=== PATIENT | female | born 1950 | race Caucasian/White ===

== ENCOUNTER 2018-03-01 10:19 | Inpatient (IN) | payer BC, MEDICARE ==
[~2018-03-01] VITALS: Ht 170.2 cm; Wt 81.7 kg
[2018-03-01] MEDS ORDERED: CEFTRIAXONE SOD 1 GM VIAL IM ONE (10:45)
[2018-03-01] MEDS ORDERED: SODIUM CHLORIDE 0.9% 1000ML 1,000 ML IV STA (10:45)
[2018-03-01 11:19] LABS: BASOPHILS # (AUTO) 0.2 (0.0-0.1); BASOPHILS % 0.8 % (0.0-1.0); EOSINOPHILS % 0.1 % (0.0-6.0); HEMATOCRIT 34.2 % (34.2-44.1); HEMOGLOBIN 12.6 g/dL (12.0-16.0); LYMPHOCYTES # (AUTO) 0.4 (1.0-3.2); LYMPHOCYTES % 1.9 % (18.0-39.1); MEAN CORPUSCULAR HEMOGLOBIN 37.1 pg (28-32); MEAN CORPUSCULAR HGB CONC 36.8 g/dL (31-35); MEAN CORPUSCULAR VOLUME 100.6 fL (81-99); MONOCYTES # (AUTO) 1.3 (0.2-0.8); MONOCYTES % 6.4 % (4.4-11.3); NEUTROPHILS # (AUTO) 17.8 (2.1-6.9); NEUTROPHILS % 90.2 % (38.7-80.0); PLATELET COUNT 91 x10e3/uL (140-360); RED CELL DISTRIBUTION WIDTH 14.9 % (11.7-14.4)
[2018-03-01 11:40] LABS: ALBUMIN 2.8 g/dL (3.5-5.0); ALBUMIN/GLOBULIN RATIO 0.8 (0.8-2.0); ANION GAP 19.9 mmol/L (8-16); CALCIUM 8.5 mg/dL (8.4-10.2); CREATININE, SERUM 1.29 mg/dL (0.57-1.11); MAGNESIUM 1.3 MG/DL (1.3-2.1); POTASSIUM 3.9 mmol/L (3.5-5.1)
[2018-03-01 11:47] LABS: CREATINE KINASE MB 0.9 ng/mL (0-5.0)
--- NOTE | 2018-03-01 11:55 | Diagnostic Imaging Report ---
EXAMINATION: CHEST SINGLE (PORTABLE) 03/01/2018 10:45 AM COMPARISON: None INDICATION: High heartbeat, temperature, kidney problems. DISCUSSION: LINES: None. LUNGS: No pneumonia or pulmonary edema. PLEURA: No pleural effusion or pneumothorax. HEART AND MEDIASTINUM: Mild cardiomegaly. Atherosclerosis and mild tortuosity of the thoracic aorta. There is mild prominence of the pulmonary arteries. BONES AND SOFT TISSUES: No acute osseous lesion. Multilevel degenerative changes of the thoracic spine. IMPRESSION: Mild cardiomegaly. No evidence of infection or edema. Donny Gay MD Signed by: Dr. Donny Gay M.D. on 03/01/2018 11:52 AM
[2018-03-01] MEDS ORDERED: DILTIAZEM HCL 5 MG/ML 5 ML VIAL IV NR (12:00)
[2018-03-01 12:20] LABS: CLARITY,URINE SL CLOUDY (CLEAR); COLOR,URINE YELLOW (YELLOW)
[2018-03-01 12:21] LABS: LEUKOCYTE ESTERASE ,URINE TRACE (NEGATIVE); NITRITE,URINE NEGATIVE (NEGATIVE)
[2018-03-01 12:22] LABS: KETONES,URINE NEGATIVE (NEGATIVE); PROTEIN,URINE DIPSTICK 3+ (NEGATIVE); URINE UROBILINOGEN 1 mg/dL (0.2 - 1)
[2018-03-01 12:23] LABS: BILIRUBIN,URINE 1+ (NEGATIVE)
[2018-03-01 12:29] LABS: BAND NEUTROPHILS % (MANUAL) 3 %; LYMPHOCYTES % (MANUAL) 1 % (19-48); MONOCYTES % (MANUAL) 7 % (3.4-9.0); NEUTROPHILS % (MANUAL) 89 % (40-74)
[2018-03-01 12:30] LABS: PLATELET MORPHOLOGY COMMENT NORMAL
[2018-03-01 12:31] LABS: PLATELET ESTIMATE MODERATELY DECREASED; RBC MORPHOLOGY COMMENT NORMAL
[2018-03-01 12:38] LABS: BACTERIA,URINE MANY /HPF; EPITHELIAL CELLS,URINE MANY /LPF; RBC,URINE >50 /HPF (0-5); WBC,URINE (MAN) >50 /HPF (0-5)
--- NOTE | 2018-03-01 13:30 | Diagnostic Imaging Report ---
EXAM: CT Abdomen and Pelvis WITH contrast INDICATION: Right flank pain COMPARISON: None. TECHNIQUE: Abdomen and pelvis were scanned utilizing a multidetector helical scanner from the lung base to the pubic symphysis after administration of IV contrast. Coronal and sagittal reformations were obtained. Routine protocol is performed. IV CONTRAST: None. ORAL CONTRAST: None RADIATION DOSE: Total DLP: 609.48 mGy*cm Estimated effective dose: (DLP x 0.015 x size factor) mSv COMPLICATIONS: None FINDINGS: LINES and TUBES: None. LOWER THORAX: Unremarkable HEPATOBILIARY: Cirrhotic liver morphology. Scattered calcified granulomas in the liver. No biliary ductal dilation. GALLBLADDER: Numerous small stones are present in the gallbladder. No wall thickening. SPLEEN: No splenomegaly. PANCREAS: No focal masses or ductal dilatation. ADRENALS: Mild diffuse thickening of both adrenal glands without definite discrete nodule. This may be due to hyperplasia. KIDNEYS/URETERS: No hydronephrosis. An 8 mm hyperdense lesion in the interpolar region of the left kidney (series 3, image 53) most likely represents a hemorrhagic cyst. There is enlargement and perirenal stranding around the right kidney. No renal or ureteral stones GI TRACT: No abnormal distention, wall thickening, or evidence of bowel obstruction. Numerous sigmoid diverticula without evidence of acute diverticulitis. There is a moderate amount of stool in the rectum. Appendix is normal. PELVIC ORGANS/BLADDER: Unremarkable. LYMPH NODES: No lymphadenopathy. VESSELS: There is severe atherosclerotic disease in the aorta and major arterial branches. PERITONEUM / RETROPERITONEUM: No free air or fluid. BONES: Multilevel degenerative changes of the thoracic and lumbar spine. Severe disc space narrowing at L5-S1. SOFT TISSUES: Unremarkable. IMPRESSION: 1. Findings consistent with right pyelonephritis. No renal or ureteral stones on either side. 2. Cirrhotic liver morphology. 3. Cholelithiasis. Donny Gay MD Signed by: Dr. Donny Gay M.D. on 03/01/2018 1:27 PM
[2018-03-01] MEDS: CEFTRIAXONE SOD 1 GM VIAL IV SCH (14:15)
[2018-03-01] MEDS: ACETAMINOPHEN 325 MG TAB PO PRN (15:43)
[2018-03-01 16:49] VITALS: BP 142/61
[2018-03-01 16:50] VITALS: BP 142/61
[2018-03-01] MEDS: NICOTINE 14 MG/EA PATCH TOP SCH (19:27)
[2018-03-01 20:21] LABS: CREATINE KINASE MB 0.7 ng/mL (0-5.0)
[2018-03-01] MEDS: ENOXAPARIN INJ 80 MG/0.8 ML SYR SC SCH (20:33)
[2018-03-01 21:19] VITALS: BP 115/55
[2018-03-02 00:17] VITALS: BP 135/58
[2018-03-02] MEDS: ACETAMINOPHEN 325 MG TAB PO PRN ×2 (00:19→11:16)
[2018-03-02] MEDS: CEFTRIAXONE SOD 1 GM VIAL IV SCH (02:20)
[2018-03-02 05:03] VITALS: BP 119/68
[2018-03-02 05:24] LABS: CREATINE KINASE MB 0.4 ng/mL (0-5.0)
[2018-03-02] MEDS: SODIUM CHLORIDE 0.9% 1000ML 1,000 ML IV SCH (07:30)
[2018-03-02] MEDS: CEFEPIME HCL 1 GM VIAL IV SCH ×2 (07:30→19:41)
[2018-03-02] MEDS ORDERED: VANCOMYCIN 1GM/NS 250 ML 250 ML IV ONE (07:30)
[2018-03-02 08:00] VITALS: BP 136/83
[2018-03-02 08:29] LABS: CHOLESTEROL 84 MD/DL (0-199); TRIGLYCERIDES 196 MG/DL (0-149)
[2018-03-02 08:32] LABS: HDL CHOLESTEROL < 5 MG/DL (40-60); LDL CHOLESTEROL 40 MG/DL (60-130)
[2018-03-02] MEDS: DILTIAZEM HCL 120 MG CAP CD PO SCH (09:00)
[2018-03-02] MEDS: NICOTINE 14 MG/EA PATCH TOP SCH (09:00)
[2018-03-02] MEDS: FAMOTIDINE 20 MG/2 ML VIAL IV SCH ×2 (09:00→16:44)
[2018-03-02] MEDS: ENOXAPARIN INJ 80 MG/0.8 ML SYR SC SCH ×2 (09:00→21:02)
[2018-03-02] MEDS ORDERED: DILTIAZEM HCL 120 MG CAP CD PO SCH (09:00)
--- NOTE | 2018-03-02 09:25 | History and Physical ---
PRIMARY CARE PHYSICIAN: Dr. Comer CHIEF COMPLAINT: Cough, fever and chills. HISTORY OF PRESENT ILLNESS: This is a 67-year-old woman with a history of diabetes mellitus and urinary tract infection as well as continued cigarette use, now developing a cough with clear phlegm as well as fever, chills and fatigue for the past 3 days. She came to the hospital here. Chest x-ray was negative, but imaging was suggestive of pyelonephritis. The patient was admitted for further evaluation and management. The patient was also found to be in atrial fibrillation with rapid ventricular response. PAST MEDICAL HISTORY: Hypertension, diabetes mellitus, urinary tract infection, cigarette use. PAST SURGICAL HISTORY: Tubal . ALLERGIES: PER ELECTRONIC MEDICAL RECORD. FAMILY/SOCIAL HISTORY: The patient is . She has 2 children. Drinks alcohol daily, about 2 glasses of wine or bourbon. She smokes 1 pack of cigarettes per day. MEDICATIONS: Per electronic medical record. REVIEW OF SYSTEMS: Denies any dizziness, chest pain, shortness of breath. Denies any headache, vision changes. Denies any diarrhea. PHYSICAL EXAMINATION VITAL SIGNS: Have been reviewed. GENERAL APPEARANCE: A tired-appearing woman resting in bed. HEENT: Anicteric. Pupils are responsive to light. No oral lesions. CARDIOVASCULAR: Normal S1 and S2. LUNGS: She has coarse breath sounds throughout with coughing with deep inspiration. ABDOMEN: Mildly tender on the right side. The right flank is tender. EXTREMITIES: No edema or calf tenderness. NEUROLOGIC: Alert, oriented times 3, moving all extremities. SKIN: Dry. PSYCHIATRIC: Flat affect. LABS: Reviewed. MEDICATIONS: Reviewed. ASSESSMENT: This is a 67-year-old woman. 1. Right-sided pyelonephritis. 2. Atrial fibrillation with rapid ventricular response. 3. Diabetes mellitus, type 2. 4. Hypertension. 5. Acute bronchitis. 6. Cirrhotic-appearing liver on CT scan imaging. 7. Cholelithiasis. 8. Thrombocytopenia. 9. Elevated beta natriuretic peptide. 10. Hyponatremia. 11. Acute kidney injury. 12. Urinary tract infection. 13. Sepsis with tachycardia and fever as high as 102.1 and blood pressure as low as 92/66. PLAN 1. Change IV ceftriaxone to IV cefepime. 2. Give 1 dose of vancomycin. 3. Resume IV fluids. 4. Obtain hemoglobin A1c and lipid panel. 5. Will give diabetic diet. 6. Will obtain TSH. 7. Use calcium channel abigail. Plan to use beta abigail when blood pressure improves. 8. Continue full-dose anticoagulation. 9. Add Pepcid. Job#: [id number]
[2018-03-02] MEDS ORDERED: DIPHENHYDRAMINE HCL INJ 50 MG/ML VIAL IV ONE (10:30)
[2018-03-02] MEDS ORDERED: DIPHENHYDRAMINE HCL INJ 50 MG/ML VIAL IV PRN (10:30)
[2018-03-02 12:00] VITALS: BP 113/59
[2018-03-02 14:58] LABS: BASOPHILS % 0.4 % (0.0-1.0); EOSINOPHILS % 0.4 % (0.0-6.0); HEMATOCRIT 30.6 % (34.2-44.1); LYMPHOCYTES # (AUTO) 0.6 (1.0-3.2); LYMPHOCYTES % 6.7 % (18.0-39.1); MEAN CORPUSCULAR HEMOGLOBIN 36.7 pg (28-32); MEAN CORPUSCULAR HGB CONC 35.9 g/dL (31-35); MONOCYTES # (AUTO) 0.8 (0.2-0.8); NEUTROPHILS % 82.3 % (38.7-80.0); PLATELET COUNT 55 x10e3/uL (140-360); RED CELL DISTRIBUTION WIDTH 15.8 % (11.7-14.4)
[2018-03-02 15:14] LABS: ANION GAP 18.1 mmol/L (8-16); CALCIUM 8.6 mg/dL (8.4-10.2); POTASSIUM 3.1 mmol/L (3.5-5.1)
[2018-03-02 16:00] VITALS: BP 111/56
[2018-03-02 16:20] LABS: BAND NEUTROPHILS % (MANUAL) 1 %; LYMPHOCYTES % (MANUAL) 13 % (19-48); MONOCYTES % (MANUAL) 3 % (3.4-9.0); NEUTROPHILS % (MANUAL) 83 % (40-74); PLATELET ESTIMATE MODERATELY DECREASED; PLATELET MORPHOLOGY COMMENT NORMAL; RBC MORPHOLOGY COMMENT ABNORMAL
[2018-03-02] MEDS ORDERED: CLINDAMYCIN 300MG 50 ML IV SCH (18:00)
[2018-03-02 20:14] VITALS: BP 109/64
[2018-03-03 00:10] VITALS: BP_SYST 102; BP_SYST 129; BP_DIAS 51; BP_DIAS 69
[2018-03-03] MEDS: SODIUM CHLORIDE 0.9% 1000ML 1,000 ML IV SCH ×3 (02:53→23:30)
[2018-03-03 05:00] LABS: BASOPHILS % 0.2 % (0.0-1.0); EOSINOPHILS # (AUTO) 0.1 (0.0-0.4); EOSINOPHILS % 1.4 % (0.0-6.0); HEMATOCRIT 29.1 % (34.2-44.1); HEMOGLOBIN 10.5 g/dL (12.0-16.0); LYMPHOCYTES # (AUTO) 0.8 (1.0-3.2); LYMPHOCYTES % 9.3 % (18.0-39.1); MEAN CORPUSCULAR HEMOGLOBIN 36.6 pg (28-32); MEAN CORPUSCULAR HGB CONC 36.1 g/dL (31-35); MEAN CORPUSCULAR VOLUME 101.4 fL (81-99); MONOCYTES # (AUTO) 1.3 (0.2-0.8); MONOCYTES % 14.8 % (4.4-11.3); NEUTROPHILS # (AUTO) 6.4 (2.1-6.9); NEUTROPHILS % 71.9 % (38.7-80.0); PLATELET COUNT 52 x10e3/uL (140-360); RED BLOOD COUNT 2.87 x10e6/uL (3.6-5.1); RED CELL DISTRIBUTION WIDTH 15.6 % (11.7-14.4)
[2018-03-03 05:13] VITALS: BP 103/66
[2018-03-03 05:18] LABS: ANION GAP 13.9 mmol/L (8-16); BLOOD UREA NITROGEN 36 mg/dL (7-26); BUN/CREATININE RATIO 44 (6-25); CALCIUM 8.5 mg/dL (8.4-10.2); CARBON DIOXIDE 25 mmol/L (22-29); CHLORIDE 96 mmol/L (98-107); CREATININE, SERUM 0.82 mg/dL (0.57-1.11); EST GLOMERULAR FILTRATION RATE > 60 ML/MIN (60-); GLUCOSE 110 mg/dL (74-118); SODIUM 132 mmol/L (136-145)
[2018-03-03 05:23] LABS: POTASSIUM 2.9 mmol/L (3.5-5.1)
[2018-03-03] MEDS ORDERED: POTASSIUM CHLORIDE 20 MEQ TAB CR PO STA (05:27)
[2018-03-03] MEDS ORDERED: POTASSIUM CHLORIDE 20MEQ/100ML 200 ML IV ONE (05:30)
[2018-03-03] MEDS: ACETAMINOPHEN 325 MG TAB PO PRN ×4 (06:15→21:45)
[2018-03-03] MEDS: CEFEPIME HCL 1 GM VIAL IV SCH ×2 (09:21→21:45)
[2018-03-03] MEDS: FAMOTIDINE 20 MG/2 ML VIAL IV SCH ×2 (09:21→17:00)
[2018-03-03] MEDS: DILTIAZEM HCL 120 MG CAP CD PO SCH (09:22)
[2018-03-03] MEDS: NICOTINE 14 MG/EA PATCH TOP SCH (09:22)
[2018-03-03] MEDS: ENOXAPARIN INJ 80 MG/0.8 ML SYR SC SCH ×2 (09:22→21:45)
[2018-03-03 09:33] VITALS: BP 142/81
[2018-03-03 09:40] VITALS: BP 142/81
[2018-03-03 17:40] VITALS: BP 134/86
--- NOTE | 2018-03-03 19:29 | Consultation ---
DATE OF CONSULTATION: March 03, 2018 CARDIOLOGY CONSULTATION REASON FOR CONSULTATION: Atrial fibrillation. HISTORY: This is a 67-year-old lady who came to this institution. She is known with diabetes mellitus and history of UTIs. Unfortunately, she is a heavy smoker for many, many years, and she drinks at least 2 drinks per day. She came to the hospital with fever and chills, temperature up to 102. Workup revealed right pyelonephritis. Another finding was liver cirrhosis and cholelithiasis on that CAT scan. On admission, she was in atrial fibrillation with fast ventricular response. She is not aware of having atrial fibrillation in the past. She is weak. Her acute illness with fever and chills started a couple of days prior to admission and progressively getting worse. Regarding her cardiac and pulmonary status, she is unaware of any atrial fibrillation in the past. There is no history of heart disease. As per family and per coworker, she does have shortness of breath on minimal activity. She attributed that to her lung disease and heavy smoking. She is in denial. She denied having any congestive heart failure-like symptoms. She does have cough with clear sputum of many years' duration, which is chronic. She does have easy fatigability. REVIEW OF SYSTEMS CARDIAC: As per above. PULMONARY: As per above. GI: No hematemesis. No melena. : Increased frequency of urination. Fever and chills. GENERAL: Fever, chills, failure to thrive. HEMATOLOGIC: Easy bruising but no bleeding. NEUROLOGIC: No localized deficit. No seizure activity. OTHER: Weakness. SOCIAL HISTORY: She lost her a month ago. She drinks a few drinks per day, and she smokes 1 pack per day. She is still working in [employer]. HOME MEDICATIONS: Include: 1. Metformin 500 mg twice a day. 2. Allopurinol 300 mg a day. 3. Losartan and hydrochlorothiazide 100 and 25 one tablet a day. ALLERGIES: NONE. CURRENT MEDICATIONS SINCE ADMISSION: Cefepime, Lovenox, diltiazem, Pepcid and nicotine patch. FAMILY HISTORY: Father of congestive heart failure at age 88. Mother is still alive at age 91. She is forgetful. One brother and 2 sisters, they are healthy, and 2 healthy children. PHYSICAL EXAMINATION VITALS: Height of 5 feet 8 inches, weight of 188 pounds. Blood pressure 100/60. Heart rate of 90, irregularly irregular, atrial fibrillation. Respiratory rate of 18. Temperature currently at 99. On admission, it was 102.1. GENERAL: Tired chronically and acutely ill patient. HEENT: Pupils are reactive. NECK: No elevation of jugular venous pulsation. CHEST: Decreased lung expansion and crackles. HEART: Irregularly irregular rate of atrial fibrillation. Normal first and second heart sounds. ABDOMEN: Soft. Bowel sounds are present. Liver edge is palpable. EXTREMITIES: Chronic skin changes. No edema. NEUROLOGIC: Awake, alert, oriented. No motor deficits. LABORATORY DATA: Sodium 139, potassium 2.9. BUN of 36, creatinine of 0.82. BNP of 529. Glucose of 110. Triglycerides of 196, total cholesterol of only 84, HDL of less than 5, LDL of 40. TSH of 1.4. White blood cell count on admission 19.7, today at 8.8. Hemoglobin 10.5. Hematocrit 29%. BUN decreasing and creatinine are at 38 and 0.82. EKG showing atrial fibrillation, bundle-branch block, nonspecific ST changes. IMPRESSION 1. Right pyelonephritis. 2. Atrial fibrillation. 3. Diabetes mellitus. 4. Hypertension. 5. Chronic lung disease. 6. Liver cirrhosis. 7. Leukocytosis. 8. Anemia. 9. Decreased platelet count, thrombocytopenia. 10. Cholelithiasis. 11. Acute tubular necrosis with recovery. 12. Currently the patient is relatively hypotensive off medication of blood pressure. PLAN: Continuation of current medical regimen of treating her UTI, anticoagulation, calcium channel abigail in view of her lung symptoms. Atrial fibrillation, elevated BNP and cardiac issues are discussed at length with the patient, her daughter and her son. Her daughter is a speech supervisor fur floor worker. We discussed all the options of treatment, choices of treatment, followup, etc. Informed about her other chronic health problems. Currently, she is on Cardizem, which we will continue. Will observe her heart rate. She is on Lovenox, which will continue. Anticoagulation will be a problem because of her low platelet count and liver disease. Probably the safest would be Coumadin or warfarin because of her comorbid conditions. An echocardiogram in view of elevation of BNP, atrial fibrillation, etc., to evaluate function. Future tests of atrial fibrillation and options on how to restore sinus rhythm, etc., can be addressed in the long run. All this was explained and discussed. Questions are answered. Job#: [id number]
[2018-03-03 20:10] VITALS: BP 134/86
[2018-03-04 04:47] LABS: BASOPHILS % 0.3 % (0.0-1.0); EOSINOPHILS # (AUTO) 0.1 (0.0-0.4); HEMATOCRIT 30.3 % (34.2-44.1); HEMOGLOBIN 10.6 g/dL (12.0-16.0); LYMPHOCYTES # (AUTO) 0.8 (1.0-3.2); LYMPHOCYTES % 6.2 % (18.0-39.1); MEAN CORPUSCULAR HEMOGLOBIN 36.2 pg (28-32); MEAN CORPUSCULAR VOLUME 103.4 fL (81-99); MONOCYTES # (AUTO) 1.5 (0.2-0.8); MONOCYTES % 11.4 % (4.4-11.3); NEUTROPHILS # (AUTO) 10.2 (2.1-6.9); NEUTROPHILS % 80.1 % (38.7-80.0); PLATELET COUNT 84 x10e3/uL (140-360); RED BLOOD COUNT 2.93 x10e6/uL (3.6-5.1); RED CELL DISTRIBUTION WIDTH 16.2 % (11.7-14.4)
[2018-03-04 05:07] LABS: INR 1.3; PROTHROMBIN TIME 15.2 seconds (11.9-14.5)
[2018-03-04 05:16] LABS: ALANINE AMINOTRANSFERASE 75 IU/L (0-55); ALBUMIN 2.1 g/dL (3.5-5.0); ALBUMIN/GLOBULIN RATIO 0.5 (0.8-2.0); ALKALINE PHOSPHATASE 230 IU/L (40-150); ANION GAP 14.7 mmol/L (8-16); BLOOD UREA NITROGEN 25 mg/dL (7-26); BUN/CREATININE RATIO 36 (6-25); CALCIUM 8.7 mg/dL (8.4-10.2); CARBON DIOXIDE 23 mmol/L (22-29); CHLORIDE 101 mmol/L (98-107); EST GLOMERULAR FILTRATION RATE > 60 ML/MIN (60-); GLUCOSE 102 mg/dL (74-118); POTASSIUM 3.7 mmol/L (3.5-5.1); SODIUM 135 mmol/L (136-145)
[2018-03-04] MEDS: CEFEPIME HCL 1 GM VIAL IV SCH ×2 (07:30→21:00)
[2018-03-04 07:40] VITALS: BP 140/76
[2018-03-04 08:00] VITALS: BP 140/76
[2018-03-04] MEDS: NICOTINE 14 MG/EA PATCH TOP SCH (09:00)
[2018-03-04] MEDS: ENOXAPARIN INJ 80 MG/0.8 ML SYR SC SCH ×2 (09:00→21:00)
[2018-03-04] MEDS: FAMOTIDINE 20 MG/2 ML VIAL IV SCH ×2 (09:00→17:00)
[2018-03-04 12:00] VITALS: BP 147/90
--- NOTE | 2018-03-04 12:01 | Diagnostic Imaging Report ---
EXAM: Right Upper Quadrant Ultrasound INDICATION: \S\cirrhotic? elevated LFTs; gallstones? \[id number] \S\1050 COMPARISON: CT abdomen pelvis without contrast 12/30/2017 TECHNIQUE: Transverse and longitudinal images of the right upper abdomen were obtained. FINDINGS: Liver: Size: 20.7 cm in the right midclavicular line, enlarged Appearance: Normal echogenicity, mildly nodular contour Mass: No focal masses Gallbladder: Stones/Sludge: Multiple echogenic shadowing calculi are noted in the dependent portion of the gallbladder lumen Wall: 0.3 cm Appearance: No wall thickening, pericholecystic fluid or hydrops. Sonographic Grajeda's Sign: Negative Bile Ducts: Intrahepatic Ducts: No dilatation Extrahepatic Ducts: Common bile duct measures 0.3 cm, no dilatation Pancreas: Visualized portions of the pancreatic neck and proximal body are normal. Kidneys: Length: Right 15.9 cm Echogenicity: Normal Collecting System: No hydronephrosis Stone: None Cyst/Mass: None Vessels: Aorta: Visualized portions are normal Inferior Vena Cava: Visualized portions are normal Main Portal Vein: 1.5 cm, mildly enlarged, with hepatopetal flow. Free Fluid: No ascites or pleural effusion IMPRESSION: 1. Moderate hepatomegaly with nodular contour consistent with cirrhosis. 2. Dilated main portal vein likely reflects portal hypertension. 3. Cholelithiasis, without sonographic evidence of cholecystitis. 4. Enlarged right kidney, without hydronephrosis or focal lesions. Signed by: Dr. Jeffrey Irving M.D. on 03/04/2018 11:33 AM
[2018-03-04] MEDS: DILTIAZEM HCL 120 MG CAP CD PO SCH (12:07)
[2018-03-04] MEDS: SODIUM CHLORIDE 0.9% 1000ML 1,000 ML IV SCH (12:15)
[2018-03-04 16:00] VITALS: BP 128/60
--- NOTE | 2018-03-04 16:15 | Consultation ---
DATE OF CONSULTATION: INFECTIOUS DISEASE CONSULTATION REASON FOR CONSULTATION: UTI, E. coli bacteremia. HISTORY OF PRESENT ILLNESS: This is a patient who is a very pleasant 67-year-old, history of atrial fibrillation, history of smoking, comes in with fever and chills. She does have diabetes mellitus and hypertension. She comes in with fever and chills. She has been sick for a week. The patient was found to have pyelonephritis with UTI and E. coli. Patient was admitted. Patient was consulted. She is feeling better. The patient does have underlying history of liver cirrhosis, history of COPD, atrial fibrillation. PAST MEDICAL HISTORY: As above. PAST SURGICAL HISTORY: Denies. ALLERGIES: NKA. SOCIAL HISTORY: Smokes 1 pack a day, drinks 2 to 3 beers a day. REVIEW OF SYSTEMS: HEENT: Negative. PULMONARY: Negative. CARDIAC: Negative at the present time. RESPIRATORY: She does have underlying at base also some shortness of breath. The patient was admitted, started on cefepime with improvement. PHYSICAL EXAMINATION: GENERAL: She is currently alert, oriented, does not seem to be in acute distress. VITAL SIGNS: Stable. Currently afebrile. HEENT: She does not appear icteric. NECK: Supple. CHEST: Clear. CARDIAC: No murmur. ABDOMEN: Soft. IMPRESSION: 1. Urinary tract infection, sepsis, Escherichia coli. Getting better. Can discharge home tomorrow with oral Keflex 500 p.o. t.i.d. Follow up as outpatient. 2. Hypertension. 3. Diabetes mellitus. 4. Chronic obstructive pulmonary disease. 5. Liver cirrhosis. Will follow. Job#: [id number] EV
[2018-03-04] MEDS: WARFARIN SOD 5 MG TAB PO SCH (17:00)
--- NOTE | 2018-03-04 19:40 | Progress Note ---
DATE: No dictation, length (00:16). Job#: [id number] GE
--- NOTE | 2018-03-04 19:52 | Progress Note ---
DATE: March 03, 2018 TIME OF SERVICE: 7 a.m. SUBJECTIVE: Overnight feeling a little better. REVIEW OF SYSTEMS: Denies any dizziness, chest pain, shortness of breath, fever or chills or sweats, no nausea, vomiting or diarrhea. OBJECTIVE VITAL SIGNS: Reviewed. GENERAL APPEARANCE: A tired-appearing woman resting in the bed. HEENT: Anicteric. CARDIOVASCULAR: Normal S1 and S2. LUNGS: Moderate breath sounds, ABDOMEN: Soft. Right flank mildly tender. EXTREMITIES: There is no edema or calf tenderness. NEUROLOGIC: Alert and oriented x3. Moving all extremities. SKIN: Dry. PSYCHIATRIC: Flat affect. LABS: Reviewed. MEDICATIONS: Reviewed. ASSESSMENT: A 67-year-old woman: 1. Right-sided pyelonephritis. 2. Atrial fibrillation with rapid ventricular response. 3. Diabetes mellitus type 2. 4. Hypertension. 5. Acute bronchitis. 6. Cirrhotic-appearing liver on CT scan imaging. 7. Cholelithiasis. 8. Thrombocytopenia. 9. Elevated beta natriuretic peptide. 10. Hyponatremia. 11. Acute kidney injury. 12. Urinary tract infection. 13. Sepsis with tachycardia and fever as high as 102.1. 14. Hypokalemia. PLAN 1. Replace potassium. 2. Continue IV antibiotics. 3. Follow up cultures. 4. Renal function improving. 5. Continue fluids. 6. Leukocytosis resolving. 7. Gram-negative urinary tract infection. 8. Discussed the case with the patient and family at bedside. Job#: [id number]
--- NOTE | 2018-03-04 20:06 | Progress Note ---
DATE: March 04, 2018 TIME: 7 a.m. SUBJECTIVE: Overnight, feeling better. REVIEW OF SYSTEMS: Denies any dizziness, chest pain, shortness of breath, fever, chills, sweats, nausea, vomiting, diarrhea. OBJECTIVE VITAL SIGNS: Reviewed. GENERAL: A tired appearing woman, resting in bed. HEENT: Anicteric. CARDIOVASCULAR: Normal S1, S2. LUNGS: Moderate breath sounds. ABDOMEN: Soft, nontender, nondistended. EXTREMITIES: No edema. SKIN: Dry. PSYCHIATRIC: Flat affect. NEUROLOGICAL: Alert and appropriate. LABS: Reviewed. MEDICATIONS: Reviewed. ASSESSMENT: A 67-year-old woman with, 1. Right-sided pyelonephritis. 2. Escherichia coli urinary tract infection. 3. Gram-negative stefani bacteremia. 4. Atrial fibrillation with rapid ventricular response. 5. Diabetes mellitus type 2. 6. Hypertension. 7. Acute bronchitis. 8. Cirrhotic-appearing liver on computed tomographic scan. 9. Cholelithiasis. 10. Thrombocytopenia. 11. Elevated B-type natriuretic peptide. 12. Hyponatremia. 13. Acute kidney injury. 14. Urinary tract infection. 15. Sepsis with tachycardia. 16. Thrombocytopenia likely secondary to cirrhosis of the liver. PLAN 1. Continue IV antibiotics. 2. Leukocytosis resolved. 3. Renal function improving. 4. I have discussed the case with daughter with bedside. 5. Obtain ultrasound of the liver to further evaluate. 6. Follow up cardiology recommendation. 7. Heart rate currently controlled. 8. The patient is on anticoagulation. The patient has thrombocytopenia. 9. I have explained everything to the daughter and the patient at bedside. Will follow up hepatitis panel and follow up liver ultrasound. Job#: [id number] [employer]
[2018-03-04 20:30] VITALS: BP 128/60
[2018-03-04 20:35] VITALS: BP 145/65
[2018-03-05] VITALS (8 sets, daily range): BP systolic 119–158; BP diastolic 72–94
[2018-03-05] MEDS: SODIUM CHLORIDE 0.9% 1000ML 1,000 ML IV SCH ×2 (02:10→15:30)
--- NOTE | 2018-03-05 07:36 | Progress Note ---
DATE: March 05, 2018 TIME: 7:15 a.m. OVERNIGHT: No events. REVIEW OF SYSTEMS: Denies any dizziness, chest pain or shortness of breath, fever, chills, nausea, vomiting, diarrhea. PHYSICAL EXAMINATION VITAL SIGNS: Reviewed. GENERAL: A tired-appearing woman resting in bed. HEENT: Anicteric. CARDIOVASCULAR: Normal S1 and S2. LUNGS: Moderate breath sounds. ABDOMEN: Soft, nontender and nondistended. EXTREMITIES: No edema or calf tenderness. NEUROLOGICAL: Alert and oriented times 3. Moving all extremities. SKIN: Dry. PSYCHIATRIC: Normal affect. LABS: Reviewed. MEDICATIONS: Reviewed. ASSESSMENT: This is a 67-year-old woman with: 1. Right-sided pyelonephritis. 2. Escherichia coli urinary tract infection. 3. Escherichia coli bacteremia. 4. Atrial fibrillation with rapid ventricular response. 5. Diabetes mellitus, type 2. 6. Hypertension. 7. Acute bronchitis. 8. Cirrhotic appearing liver. 9. Cholelithiasis. 10. Thrombocytopenia. 11. Elevated brain natriuretic peptide. 12. Hyponatremia. 13. Acute kidney injury. 14. Urinary tract infection. 15. Sepsis. 16. Thrombocytopenia likely secondary to cirrhosis. PLAN 1. Continue IV antibiotics for bacteremia with E. coli. The patient needs 14 days total of IV antibiotics for bacteremia treatment. Repeat blood cultures negative to date. 2. Renal function has been improving. 3. Continue anticoagulation with Coumadin with Lovenox bridging. Obtain INR now. 4. Hepatitis panel is still pending. I discussed this with the patient and daughter at bedside. 5. Echocardiogram is showing normal left ventricular ejection fraction of 50% to 55%. Trace mitral regurgitation and mild to moderate tricuspid regurgitation. 6. Discharge planning. Wait for INR to become therapeutic. Continue IV antibiotics in the meantime. This is day #5 of IV antibiotics. Job#: [id number] MARK
[2018-03-05 07:59] LABS: INR 1.27; PROTHROMBIN TIME 14.9 seconds (11.9-14.5)
[2018-03-05] MEDS: CEFEPIME HCL 1 GM VIAL IV SCH ×2 (08:27→20:19)
[2018-03-05] MEDS: FAMOTIDINE 20 MG/2 ML VIAL IV SCH ×2 (08:27→16:47)
[2018-03-05] MEDS: DILTIAZEM HCL 120 MG CAP CD PO SCH (08:28)
[2018-03-05] MEDS: ENOXAPARIN INJ 80 MG/0.8 ML SYR SC SCH ×2 (08:28→20:19)
[2018-03-05] MEDS: NICOTINE 14 MG/EA PATCH TOP SCH (08:28)
[2018-03-05] MEDS: WARFARIN SOD 5 MG TAB PO SCH (16:47)
[2018-03-05] MEDS: ACETAMINOPHEN 325 MG TAB PO PRN (20:19)
[2018-03-06 00:24] VITALS: BP 121/78
[2018-03-06 04:15] VITALS: BP 137/86
[2018-03-06 05:07] LABS: BASOPHILS % 0.3 % (0.0-1.0); EOSINOPHILS # (AUTO) 0.1 (0.0-0.4); EOSINOPHILS % 0.7 % (0.0-6.0); HEMATOCRIT 30.8 % (34.2-44.1); HEMOGLOBIN 10.7 g/dL (12.0-16.0); LYMPHOCYTES # (AUTO) 1.3 (1.0-3.2); MEAN CORPUSCULAR HEMOGLOBIN 35.9 pg (28-32); MEAN CORPUSCULAR HGB CONC 34.7 g/dL (31-35); MEAN CORPUSCULAR VOLUME 103.4 fL (81-99); MONOCYTES # (AUTO) 0.7 (0.2-0.8); MONOCYTES % 4.5 % (4.4-11.3); NEUTROPHILS # (AUTO) 12.2 (2.1-6.9); NEUTROPHILS % 84.5 % (38.7-80.0); PLATELET COUNT 191 x10e3/uL (140-360); RED BLOOD COUNT 2.98 x10e6/uL (3.6-5.1); RED CELL DISTRIBUTION WIDTH 16.3 % (11.7-14.4)
[2018-03-06 05:18] LABS: INR 1.41; PROTHROMBIN TIME 16.2 seconds (11.9-14.5)
[2018-03-06 05:22] LABS: ALANINE AMINOTRANSFERASE 75 IU/L (0-55); ALBUMIN 2.4 g/dL (3.5-5.0); ALBUMIN/GLOBULIN RATIO 0.5 (0.8-2.0); ALKALINE PHOSPHATASE 243 IU/L (40-150); ANION GAP 14.7 mmol/L (8-16); BLOOD UREA NITROGEN 16 mg/dL (7-26); BUN/CREATININE RATIO 25 (6-25); CALCIUM 8.9 mg/dL (8.4-10.2); CARBON DIOXIDE 25 mmol/L (22-29); CHLORIDE 100 mmol/L (98-107); CREATININE, SERUM 0.65 mg/dL (0.57-1.11); EST GLOMERULAR FILTRATION RATE > 60 ML/MIN (60-); GLUCOSE 96 mg/dL (74-118); POTASSIUM 3.7 mmol/L (3.5-5.1); SODIUM 136 mmol/L (136-145)
[2018-03-06] MEDS ORDERED: NICODERM CQ1 EAC1 TOP (07:16)
[2018-03-06] MEDS ORDERED: COUMADIN3 MG PO (07:16)
[2018-03-06] MEDS ORDERED: PEPCID20 MG PO (07:16)
[2018-03-06] MEDS ORDERED: CARDIZEM CD120 MG PO (07:16)
--- NOTE | 2018-03-06 07:28 | Progress Note ---
DATE: March 05, 2018 TIME: 7 a.m. OVERNIGHT: No events. REVIEW OF SYSTEMS: Denies any dizziness or chest pain. PHYSICAL EXAMINATION VITAL SIGNS: Reviewed. GENERAL: A tired-appearing woman resting in bed. HEENT: Anicteric. CARDIOVASCULAR: Normal S1 and S2. LUNGS: Moderate breath sounds. ABDOMEN: Soft and nontender. EXTREMITIES: No edema. SKIN: Dry. PSYCHIATRIC: DICTATION NOT COMPLETE, LENGTH 0:54 Job#: [id number] AR
[2018-03-06 07:29] VITALS: BP 145/93
--- NOTE | 2018-03-06 07:31 | Progress Note ---
DATE: March 06, 2018 TIME: 7 a.m. OVERNIGHT: Stool for occult blood positive. REVIEW OF SYSTEMS: Denies any dizziness, chest pain or shortness of breath. PHYSICAL EXAMINATION VITAL SIGNS: Reviewed. GENERAL: A tired-appearing woman resting in bed. HEENT: Anicteric. CARDIOVASCULAR: Normal S1 and S2. LUNGS: Moderate breath sounds. ABDOMEN: Soft, nontender and nondistended. EXTREMITIES: No edema or calf tenderness. NEUROLOGIC: Alert, awake, appropriate. Moving all extremities. SKIN: Dry. PSYCHIATRIC: Normal affect. LABS: Reviewed. MEDICATIONS: Reviewed. ASSESSMENT: This is a 67-year-old woman. 1. Right-sided pyelonephritis. 2. Escherichia coli urinary tract infection. 3. Escherichia coli bacteremia. 4. Atrial fibrillation with rapid ventricular response. 5. Diabetes mellitus, type 2. Hemoglobin A1c 4.8. 6. Hypertension. 7. Acute bronchitis. 8. Cirrhotic-appearing liver. 9. Cholelithiasis. 10. Thrombocytopenia. 11. Elevated B-type natriuretic peptide. 12. Hyponatremia. 13. Acute kidney injury. 14. Urinary tract infection. 15. Sepsis present on admission. 16. Stool occult positive blood. PLAN 1. Hemoglobin is stable. 2. Continue anticoagulants. 3. Titrate Coumadin up. 4. Monitor blood counts. 5. Continue IV antibiotics. 6. Discharge planning. Job#: [id number]
[2018-03-06 08:00] VITALS: BP 145/93
[2018-03-06] MEDS: CEFEPIME HCL 1 GM VIAL IV SCH (08:43)
[2018-03-06] MEDS: FAMOTIDINE 20 MG/2 ML VIAL IV SCH (08:43)
[2018-03-06] MEDS: NICOTINE 14 MG/EA PATCH TOP SCH (08:44)
[2018-03-06] MEDS: ENOXAPARIN INJ 80 MG/0.8 ML SYR SC SCH (08:44)
[2018-03-06] MEDS: DILTIAZEM HCL 120 MG CAP CD PO SCH (08:44)
[2018-03-06] MEDS ORDERED: WARFARIN SOD 3 MG TAB PO SCH (17:00)
[2018-03-06] MEDS ORDERED: WARFARIN SOD 5 MG TAB PO SCH (17:00)
== END 2018-03-06 15:44 | disposition home or self-care (01) | DRG 871 ==
LOC: ER 10:19 → ERHOLD 14:10 → MED/SURG2 15:07
PROVIDERS: ADMIT Internal Medicine; ATTEND Internal Medicine
DX: A41.9 Sepsis, unspecified organism (principal); N17.0 Acute kidney failure with tubular necrosis; N39.0 Urinary tract infection, site not specified; N12 Tubulo-interstitial nephritis, not specified as acute or chronic; E87.1 Hypo-osmolality and hyponatremia; K92.1 Melena; D69.6 Thrombocytopenia, unspecified; K80.20 Calculus of gallbladder without cholecystitis without obstruction; I48.91 Unspecified atrial fibrillation; J20.9 Acute bronchitis, unspecified; E86.0 Dehydration; Z79.4 Long term (current) use of insulin; E11.9 Type 2 diabetes mellitus without complications; K74.60 Unspecified cirrhosis of liver; J44.9 Chronic obstructive pulmonary disease, unspecified; B96.20 Unspecified Escherichia coli [E. coli] as the cause of diseases classified elsewhere
CPT/HCPCS: 36415; 71045; 74176; 76705; 80048; 80053; 80061; 81001; 82270; 82550; 82553; 82948; 83036; 83605; 83735; 83880; 84132; 84443; 84484; 85025; 85610; 87040; 87071; 87086; 87186; 87205; 93005; 93306; 99284; J0692; J0696; J1650; J3370; J3480; J7030